=== PATIENT | male | born 1960 | race Caucasian/White ===

== ENCOUNTER 2019-12-25 19:53 | Inpatient (IN) | payer OTHER ==
[2019-12-26] MEDS ORDERED: NALOXONE 0.4 MG/ML 1 ML VIAL IV PRN (00:51)
--- NOTE | 2019-12-26 01:13 | P.HPIM ---
History of Present Illness H&P Date: 12/25/19 Chief Complaint: sob , cough I was wearing full PPE during this encounter including N95 mask, face shield, double gloves, gown, and head cover. . i maintained 6 feet distance with the patient who verbalized understanding about these precautionary measures. except for during my physical exam where i had to be close to the patient. 59-year-old male with diabetes mellitus he doesn't know his baseline A1c, uses insulin Patient is a transfer from [facility] Patient is a very poor historian he only answers with yes and no to direct questions Patient was having symptoms for one week now reporting cough and shortness of breath which has been worsening today he also reports some mild diarrhea otherwise he denies any headache denies any fevers denies any chills denies any chest pain he denies abdominal pain denies any nausea vomiting denies any body aches denies any loss of smell or taste sensation denies any known contact with sick patients are confirmed Covid patient's Patient went to [facility] ER and was found to be hypoxic at 87% Covid testing was done influenza was negative Patient denies any recent traveling or hospitalization. Denies any history of blood clots. Blood work findings from [facility] Chest x-ray bilateral diffuse infiltrates Patient is on 6 L nonrebreather White count 7.9 Lymphocytes 1.25 no lymphopenia Lactic acid is 2 normal D-dimer elevated 1.5 this is a prognostic value with Covid Liver enzymes elevated AST 80 ALT 118 Influenza negative Drugs negative LDH 381 CRP elevated Review of Systems Pertinent positives as noted in HPI. All other systems were reviewed and are negative Past Medical History Past Medical History: Diabetes Mellitus History of Any Multi-Drug Resistant Organisms: None Reported Past Surgical History: No Surgical Hx Reported Past Anesthesia/Blood Transfusion Reactions: No Reported Reaction Past Psychological History: No Psychological Hx Reported Smoking Status: Never smoker Past Alcohol Use History: None Reported Past Drug Use History: None Reported - Past Family History family Family Medical History: No Reported History Medications and Allergies Allergies Allergy/AdvReac Type Severity Reaction Status Date / Time No Known Allergies Allergy Verified 12/25/19 23:51 Physical Exam Vitals: Vital Signs Temp Pulse Resp BP Pulse Ox 12/25/19 23:37 98.5 F 76 17 137/72 94 L 12/25/19 22:00 98.2 F 72 17 127/71 93 L Intake and Output 12/25/19 12/25/19 12/26/19 14:59 22:59 06:59 Other: Weight 118.5 kg Patient is very slow to interact and answer questions and he only answers strict questions with yes and no Constitutional: No acute distress, conversant, pleasant, on nonrebreather Eyes: Anicteric sclerae, moist conjunctiva, Pupils equal round reactive to light ENMT: NC/AT Oropharynx clear, no erythema, or exudates Neck: Supple, FROM, no masses, or JVD No carotid bruits No thyromegaly Lungs: Clear to auscultation Clear to percussion Normal respiratory effort, no accessory muscle use Cardiovascular: Heart regular in rate and rhythm, No murmurs, gallops, or rubs No peripheral edema Abdominal: Soft Nontender, no guarding, rebound or rigidity Abdomen moving with respiration Normoactive bowel sounds No hepatomegaly, No splenomegaly No palpable mass No abdominal wall hernia noted Skin: Normal temperature, tone, texture, turgor No induration No subcutaneous nodules No rash, lesions No ulcers Extremities: No digital cyanosis No clubbing Pedal pulses intact and symmetrical Radial pulses intact and symmetrical No calf tenderness Psychiatric: Alert and oriented to person, place Appropriate affect poor judgement Neuro Muscles Strength 4/5 in all 4 extremities Sensation to light touch grossly present throughout Cranial nerves II-XII grossly intact No focal sensory deficits Lymphatics: no palpable cervical or supraclavicular , or inguinal lymph nodes Thrombosis Risk Factor Assmnt - Choose All That Apply Any of the Below Risk Factors Present?: No Other Risk Factors: No Other congenital or acquired thrombophilia - If yes, enter type in comment: No Thrombosis Risk Factor Assessment Level: Very Low Risk Assessment and Plan Assessment: 59-year-old male with diabetes mellitus on insulin Patient transferred from [facility] Patient suspected to have atypical pneumonia secondary to underlying Covid testing is pending was done on December 24 Anticipated length of stay more than 2 midnights Acute hypoxic respiratory failure Atypical pneumonia possible underlying bacterial versus Covid Suspected Covid Diabetes mellitus Patient is very slow to answer questions seems to be slightly confused will be placed on fall precautions Plan Follow-up cultures Influenza negative D-dimer elevated this is of prognostic value for Covid Check pro calcitonin, CPK, ferritin Start patient on Rocephin and doxycycline to cover for possible bacterial atypical pneumonia Start patient on Plaquenil and zinc for possible Covid ID consultation Check EKG Fall precautions Tylenol for fever Supplemental oxygen keep O sat above 92% Insulin sliding scale Preformed a thorough record review from recent hospitalization paperwork reviewed from [facility] CODE STATUS: Full code DVT prophylaxis: Heparin subcu 3 times a day Discussed with: Patient, ER, RN Anticipated length of stay more than [address]: Home A total of 60 minutes was spent on the care of this complex patient more than 50% of the time was spent in counseling and care coordination.
[2019-12-26] MEDS: DOXYCYCLINE 100 MG CAP PO SCH ×3 (01:47→20:38)
[2019-12-26] MEDS: HYDROXYCHLOROQUINE SULFATE 200 MG TAB PO SCH ×3 (01:47→21:43)
--- NOTE | 2019-12-26 01:48 | XR ---
EXAMINATION TYPE: XR chest 1V DATE OF EXAM: 12/26/2019 COMPARISON: NONE HISTORY: Cough. TECHNIQUE: FINDINGS: There is bilateral moderate pulmonary edema. There is coalescent peripheral infiltrates in the mid lung salas bilaterally. There is no definite heart failure. There is possible small right pl eural effusion. IMPRESSION: Bilateral pulmonary edema could relate to RDS.
[2019-12-26 06:59] LABS: Glucose,Whole Blood 148 mg/dL (75-99)
[2019-12-26] MEDS: INSULIN ASPART (NovoLOG) 100 UNIT/ML VIAL SQ SCH ×4 (07:59→21:44)
[2019-12-26] MEDS: HEPARIN SODIUM,PORCINE 5,000 UNIT/ML 1 ML VIAL SQ SCH ×3 (07:59→23:46)
[2019-12-26] MEDS: ZINC SULFATE 220 MG CAP PO SCH (07:59)
--- NOTE | 2019-12-26 09:03 | CDI ---
Documentation Clarification Form Date: 12/26/2019 08:45:27 AM From: Olga Lidia Logan RN CCDS Admit Date: 12/25/2019 10:10:00 PM Patient Name: Avinash Allison Visit Number: [id number] Discharge Date: ATTENTION: The Clinical Documentation Specialists (CDI) and [facility] Coding Staff appreciate your assistance in clarifying documentation. Please respond to the clarification below the line at the bottom and electronically sign. The CDI & [facility] Coding staff will review the response and follow-up if needed. Please note: Queries are made part of the Legal Health Record. If you have any questions, please contact the author of this message via ITS. Dr. Krystal Gaytan Confusion is documented in the H&P / History/Risk Factors: 59-year-old male transferred to [facility] from [facility] for suspected COVID. Medical history DM, Clinical Indicators: VSS 127/71 72 98.2 17 93% 6L Non-rebreather Labs: 12/24 Wbc 7.9, Lymphocytes 1.25, Lactic acid 2, D-dimer 1.5, AST 80, ALT 118, LDH 381, CRP elevated, Influenza negative. Lab results taken from H&P 12/24 CXR 4/3 Bilateral pulmonary edema could relate to ARDS Treatment: 4/3 Ceftriaxone Ivpb Q 24 Hrs, Vibramycin po Bid, Plaquenl po Bid, Zinc Sulfate. In your professional opinion, please clarify the etiology of the Altered Mental Status, if known. Metabolic Encephalopathy (specify Type and Underlying Medical Illness) Other condition (please specify) Unable to determine (Last Revision: December 2017) patient is new to our system, and we thought this could be some baseline mild congnitive impairment or mentally challenged. I was the admitting physician. please forward your query to the physician who wrote the most current Progress note, he/she probably would be able to help you better . MTDD
[2019-12-26 11:01] LABS: ALT 83 U/L (4-49); AST 50 U/L (17-59); African American GFR (CKD) >90 (>60 ml/min/1.73 sqM); Albumin 2.9 g/dL (3.5-5.0); Alkaline Phosphatase 66 U/L (38-126); Anion Gap 4 mmol/L; Blood Urea Nitrogen 16 mg/dL (9-20); Calcium 8.5 mg/dL (8.4-10.2); Carbon Dioxide 29 mmol/L (22-30); Chloride 106 mmol/L (98-107); Glucose 162 mg/dL (74-99); Non-African American GFR(CKD) >90 (>60 ml/min/1.73 sqM); Potassium 4.9 mmol/L (3.5-5.1); Sodium 139 mmol/L (137-145); Total Bilirubin 0.3 mg/dL (0.2-1.3); Total Protein 5.9 g/dL (6.3-8.2)
[2019-12-26 11:25] LABS: Ferritin 569.5 ng/mL (22.0-322.0)
[2019-12-26 11:31] LABS: Basophils # (A) 0.1 k/uL (0-0.2); Basophils % (A) 1 %; Eosinophils # (A) 0.1 k/uL (0-0.7); Eosinophils % (A) 1 %; HCT 39.1 % (39.0-53.0); HGB 12.9 gm/dL (13.0-17.5); Lymphocytes % (A) 16 %; MCH 30.8 pg (25.0-35.0); MCHC 32.9 g/dL (31.0-37.0); MCV 93.5 fL (80.0-100.0); Mean Platelet Volume 7.4; Monocytes # (A) 0.7 k/uL (0-1.0); Monocytes % (A) 10 %; Neutrophils # (A) 4.5 k/uL (1.3-7.7); Neutrophils % (A) 69 %; Platelet Count 425 k/uL (150-450); RBC 4.18 m/uL (4.30-5.90); RDW 12.9 % (11.5-15.5); WBC 6.5 k/uL (3.8-10.6)
[2019-12-26 11:38] LABS: Glucose,Whole Blood 137 mg/dL (75-99)
[2019-12-26 16:45] LABS: Glucose,Whole Blood 119 mg/dL (75-99)
--- NOTE | 2019-12-26 17:33 | P.PN ---
Subjective Progress Note Date: 12/26/19 (Delayed charting pain at 10:00) Principal diagnosis: shortness of breath Patient is a 59-year-old male to past medical history of diabetes mellitus and cognitive disorder who initially presented to [facility] secondary to cough and shortness of breath. There he underwent an extensive evaluation. He was hypoxic at 87% on room air, influenza negative, Covid 19 pending, chest x-ray with diffuse infiltrates. D-dimer elevated at 1.5, AST 80, ALT 118, LDH 384, CRP elevated. He was transferred here as part of the Covid relief process. He was continued on Rocephin and diaphoresis the cycle and for possible atypical pneumonia. He was started on Plaquenil and zinc for possible Covid. Infectious disease was consulted. By the morning after admission he was requiring increasing levels of oxygen. Patient seen and examined at bedside. He denies any shortness of breath, cough, nausea vomiting, or diarrhea. He complains of body aches and not feeling well. Objective - Vital Signs Vital signs: Vital Signs Temp 98.2 F 12/26/19 15:00 Pulse 80 12/26/19 15:00 Resp 18 12/26/19 15:00 BP 137/74 12/26/19 15:00 Pulse Ox 91 L 12/26/19 16:39 Intake & Output 12/25/19 12/26/19 12/26/19 18:59 06:59 18:59 Intake Total 596 Balance 596 Weight 118.5 kg Intake: Oral 596 Other: Voiding Method Toilet # Voids 2 2 - Exam General: Ill-appearing, distress, appears at stated age Derm: warm, dry Head: atraumatic, normocephalic, symmetric Eyes: EOMI, no lid lag, anicteric sclera Mouth: no lip lesion, mucus membranes moist Cardiovascular: S1S2 reg, no murmur, positive posterior tibial pulse bilateral, Lungs: Breath sounds bilateral, + accessory muscle use Abdominal: soft, nontender to palpation, no guarding, no appreciable organomegaly Ext: no gross muscle atrophy, no edema, no contractures Neuro: CN II-XI grossly intact, no focal neuro deficits Psych: Alert, oriented, appropriate affect - Labs CBC & Chem 7: 12/26/19 10:23 12/26/19 10:23 Labs: Abnormal Lab Results - Last 24 Hours (Table) 12/26/19 12/26/19 12/26/19 Range/Units 01:53 06:57 10:23 RBC 4.18 L (4.30-5.90) m/uL Hgb 12.9 L (13.0-17.5) gm/dL Glucose (74-99) mg/dL POC Glucose (mg/dL) 148 H (75-99) mg/dL Ferritin 569.5 H (22.0-322.0) ng/mL ALT (4-49) U/L Total Protein (6.3-8.2) g/dL Albumin (3.5-5.0) g/dL 12/26/19 12/26/19 12/26/19 Range/Units 10:23 11:35 16:43 RBC (4.30-5.90) m/uL Hgb (13.0-17.5) gm/dL Glucose 162 H (74-99) mg/dL POC Glucose (mg/dL) 137 H 119 H (75-99) mg/dL Ferritin (22.0-322.0) ng/mL ALT 83 H (4-49) U/L Total Protein 5.9 L (6.3-8.2) g/dL Albumin 2.9 L (3.5-5.0) g/dL Assessment and Plan Assessment: Bilateral pneumonia consistent with viral, probable Covid 19 -Plaque [place], zinc -Doxy and Rocephin to treat atypical or bacterial pneumonia -Add albuterol -Elevated ferritin -Follow ferritin, liver enzymes, alkaline phosphatase, CK, LDH, and d-dimer -Pro calcitonin normal -Await Covid 19 testing Acute hypoxic respiratory failure secondary to above -Continue with O2 -Pulmonary hygiene -Awake proning Diabetes mellitus -Sliding-scale insulin -Follow blood sugars -Check an A1c Cognitive delay -Supportive care -Discussed with mother states that he is his own decision-maker DVT prophylaxis: heparin Discussed with: Patient, nursing, mother Anticipated discharge: 5-[address]: home A total of 65 minutes was spent on the care of this complex patient more than 50% of the time was spent in counseling and care coordination.
[2019-12-26] MEDS: ACETAMINOPHEN TAB 325 MG TAB PO PRN (20:38)
[2019-12-26 21:43] LABS: Glucose,Whole Blood 121 mg/dL (75-99)
--- NOTE | 2019-12-26 23:34 | P.CONS ---
History of Present Illness - Reason for Consult Consult date: 12/26/19 possible COVID 19 INFECTION Requesting physician: Krystal Gaytan - Chief Complaint Shortness of breath and cough x few days - History of Present Illness Patient is a 59-year-old male with a past medical he significant for diabetes mellitus presenting to [facility] with increasing shortness of breath and diarrhea along with a headache and body aches patient was noticed to be hypoxic chest x-ray was suggestive of bilateral diffuse infiltrate patient requiring 6 L nonrebreather for oxygenation he was noticed to have elevated d-dimer and lymphopenia with high concern for covenant infection patient has been transferred to [facility] for further management of underlying likely COVID-19 infection On examination vital signs stable except for the patient is requiring 10 L high flow oxygen and is satting at 91% Lung auscultation today shows decrease intensity and no significant wheeze LabsCOVID testing is pending chest x-ray with bilateral diffuse infiltrate question of ARDS A/P ---patient is a 59-year male presented to the hospital increasing shortness of breath cough and this patient did have low-grade fever did have bilateral diffuse infiltrate and high clinical suspicious for acute COVID-19 pneumonia patient is being treated with Plaquenil zinc antibiotic antibiotic therapy which will be continued and monitor his clinical course closely Past Medical History Past Medical History: Diabetes Mellitus History of Any Multi-Drug Resistant Organisms: None Reported Past Surgical History: No Surgical Hx Reported Past Anesthesia/Blood Transfusion Reactions: No Reported Reaction Past Psychological History: No Psychological Hx Reported Smoking Status: Never smoker Past Alcohol Use History: None Reported Past Drug Use History: None Reported - Past Family History family Family Medical History: No Reported History Medications and Allergies Home Medications Medication Instructions Recorded Confirmed Type Atorvastatin [Lipitor] 80 mg PO HS 12/26/19 12/26/19 History Fenofibrate 160 mg PO DAILY 12/26/19 12/26/19 History Insulin NPH Hum/Reg Insulin Hm 56 units SQ AC-BRKFST 12/26/19 12/26/19 History [NovoLIN 70-30 100 UNIT/ML VIAL] Insuln Asp Prt/Insulin Aspart 35 units SQ AC-SUPPER 12/26/19 12/26/19 History [NovoLOG MIX 70-30 VIAL] Levothyroxine Sodium [Synthroid] 50 mcg PO DAILY 12/26/19 12/26/19 History Levothyroxine Sodium [Synthroid] 50 mcg PO DAILY 12/26/19 12/26/19 History Lurasidone [Latuda] 80 mg PO HS 12/26/19 12/26/19 History Venlafaxine HCl [Effexor] 75 mg PO DAILY 12/26/19 12/26/19 History carBAMazepine [TEGretol XR] 100 mg PO DAILY 12/26/19 12/26/19 History carBAMazepine [TEGretol XR] 200 mg PO HS 12/26/19 12/26/19 History metFORMIN HCL 1,000 mg PO BID 12/26/19 12/26/19 History Allergies Allergy/AdvReac Type Severity Reaction Status Date / Time No Known Allergies Allergy Verified 12/25/19 23:51 Physical Exam Vitals: Vital Signs Temp Pulse Resp BP Pulse Ox 12/26/19 11:02 98.7 F 70 18 133/76 93 L 12/26/19 07:00 98.1 F 75 18 131/81 92 L 12/26/19 03:12 98.0 F 74 17 153/75 95 12/25/19 23:37 98.5 F 76 17 137/72 94 L 12/25/19 22:00 98.2 F 72 17 127/71 93 L Intake and Output 12/26/19 12/26/19 12/26/19 06:59 14:59 22:59 Intake Total 596 Balance 596 Intake: Oral 596 Other: Voiding Method Toilet # Voids 2 2 Results CBC & Chem 7: 12/26/19 10:23 12/26/19 10:23 Labs: Abnormal Lab Results - Last 24 Hours (Table) 12/26/19 12/26/19 12/26/19 Range/Units 01:53 06:57 10:23 RBC 4.18 L (4.30-5.90) m/uL Hgb 12.9 L (13.0-17.5) gm/dL Glucose (74-99) mg/dL POC Glucose (mg/dL) 148 H (75-99) mg/dL Ferritin 569.5 H (22.0-322.0) ng/mL ALT (4-49) U/L Total Protein (6.3-8.2) g/dL Albumin (3.5-5.0) g/dL 12/26/19 12/26/19 Range/Units 10:23 11:35 RBC (4.30-5.90) m/uL Hgb (13.0-17.5) gm/dL Glucose 162 H (74-99) mg/dL POC Glucose (mg/dL) 137 H (75-99) mg/dL Ferritin (22.0-322.0) ng/mL ALT 83 H (4-49) U/L Total Protein 5.9 L (6.3-8.2) g/dL Albumin 2.9 L (3.5-5.0) g/dL
[2019-12-27 07:11] LABS: Glucose,Whole Blood 130 mg/dL (75-99)
[2019-12-27] MEDS: INSULIN ASPART (NovoLOG) 100 UNIT/ML VIAL SQ SCH ×4 (07:54→21:42)
[2019-12-27 08:07] LABS: ALT 77 U/L (4-49); AST 48 U/L (17-59); African American GFR (CKD) >90 (>60 ml/min/1.73 sqM); Albumin 3.1 g/dL (3.5-5.0); Alkaline Phosphatase 66 U/L (38-126); Anion Gap 6 mmol/L; Blood Urea Nitrogen 16 mg/dL (9-20); C Reactive Protein 55.9 mg/L (<10.0); Calcium 8.5 mg/dL (8.4-10.2); Carbon Dioxide 23 mmol/L (22-30); Chloride 107 mmol/L (98-107); Creatine Kinase 112 U/L (55-170); Glucose 132 mg/dL (74-99); LDH 883 U/L (313-618); Magnesium 1.7 mg/dL (1.6-2.3); Non-African American GFR(CKD) >90 (>60 ml/min/1.73 sqM); Potassium 4.9 mmol/L (3.5-5.1); Sodium 136 mmol/L (137-145); Total Bilirubin 0.5 mg/dL (0.2-1.3); Total Protein 6.3 g/dL (6.3-8.2)
[2019-12-27] MEDS: HEPARIN SODIUM,PORCINE 5,000 UNIT/ML 1 ML VIAL SQ SCH ×3 (08:09→23:27)
[2019-12-27] MEDS: HYDROXYCHLOROQUINE SULFATE 200 MG TAB PO SCH ×2 (08:09→21:19)
[2019-12-27] MEDS: DOXYCYCLINE 100 MG CAP PO SCH (08:09)
[2019-12-27] MEDS: ZINC SULFATE 220 MG CAP PO SCH (08:09)
[2019-12-27 08:22] LABS: Basophils % (A) 1 %; Eosinophils # (A) 0.1 k/uL (0-0.7); Eosinophils % (A) 2 %; HCT 41.9 % (39.0-53.0); HGB 13.5 gm/dL (13.0-17.5); Lymphocytes # (A) 1.4 k/uL (1.0-4.8); Lymphocytes % (A) 20 %; MCH 30.2 pg (25.0-35.0); MCHC 32.3 g/dL (31.0-37.0); MCV 93.4 fL (80.0-100.0); Mean Platelet Volume 7.2; Monocytes # (A) 0.6 k/uL (0-1.0); Monocytes % (A) 9 %; Neutrophils # (A) 4.5 k/uL (1.3-7.7); Neutrophils % (A) 66 %; Platelet Count 481 k/uL (150-450); RBC 4.48 m/uL (4.30-5.90); RDW 12.9 % (11.5-15.5); WBC 6.9 k/uL (3.8-10.6)
[2019-12-27 11:50] LABS: Glucose,Whole Blood 142 mg/dL (75-99)
[2019-12-27 16:18] LABS: Ferritin 491.2 ng/mL (22.0-322.0)
[2019-12-27 16:33] LABS: Glucose,Whole Blood 129 mg/dL (75-99)
--- NOTE | 2019-12-27 18:38 | P.PN ---
Subjective Progress Note Date: 12/27/19 Principal diagnosis: shortness of breath Patient is a 59-year-old male to past medical history of diabetes mellitus and cognitive disorder who initially presented to [facility] secondary to cough and shortness of breath. There he underwent an extensive evaluation. He was hypoxic at 87% on room air, influenza negative, Covid 19 pending, chest x-ray with diffuse infiltrates. D-dimer elevated at 1.5, AST 80, ALT 118, LDH 384, CRP elevated. He was transferred here as part of the Covid relief process. He was continued on Rocephin and doxy and for possi ble atypical pneumonia. He was started on Plaquenil and zinc for possible Covid. Infectious disease was consulted. By the morning after admission he was requiring increasing levels of oxygen. COVID-19 +. He continued to require high amounts of oxygen but was feeling asymptomatic. Patient seen and examined at bedside. He denies any shortness of breath (though visiably SOB when talking), cough, nausea vomiting, or diarrhea. He states that he is feeling better than yesterday. Objective - Vital Signs Vital signs: Vital Signs Temp 97.8 F 12/27/19 15:00 Pulse 72 12/27/19 15:00 Resp 18 12/27/19 15:00 BP 138/81 12/27/19 15:00 Pulse Ox 95 12/27/19 15:00 Intake & Output 12/26/19 12/27/19 12/27/19 18:59 06:59 18:59 Intake Total 776 50 888 Balance 776 50 888 Intake: Intake, IV Titration 50 Amount cefTRIAXone 1 gm In 50 Sodium Chloride 0.9% 50 ml @ 100 mls/hr IVPB Q24H [facility] Rx#:[id number] Oral 776 888 Other: Voiding Method Toilet Toilet # Voids 2 1 1 - Exam General: Ill-appearing, no distress, appears at stated age Derm: warm, dry Head: atraumatic, normocephalic, symmetric Eyes: EOMI, no lid lag, anicteric sclera Mouth: no lip lesion, mucus membranes moist Cardiovascular: S1S2 reg, no murmur, positive posterior tibial pulse bilateral, Lungs: Course breath sounds bilateral, no accessory muscle use, 3 word conversational dyspnea Abdominal: soft, nontender to palpation, no guarding, no appreciable organomegaly Ext: no gross muscle atrophy, no edema, no contractures Neuro: CN II-XI grossly intact, no focal neuro deficits Psych: Alert, oriented, appropriate affect - Labs CBC & Chem 7: 12/27/19 07:11 12/27/19 07:11 Labs: Abnormal Lab Results - Last 24 Hours (Table) 12/26/19 12/27/19 12/27/19 Range/Units 21:39 07:09 07:11 Plt Count 481 H (150-450) k/uL D-Dimer (<0.60) mg/L FEU Sodium (137-145) mmol/L Glucose (74-99) mg/dL POC Glucose (mg/dL) 121 H 130 H (75-99) mg/dL Ferritin (22.0-322.0) ng/mL ALT (4-49) U/L Lactate Dehydrogenase (313-618) U/L C-Reactive Protein (<10.0) mg/L Albumin (3.5-5.0) g/dL 12/27/19 12/27/19 12/27/19 Range/Units 07:11 07:11 11:49 Plt Count (150-450) k/uL D-Dimer 1.39 H (<0.60) mg/L FEU Sodium 136 L (137-145) mmol/L Glucose 132 H (74-99) mg/dL POC Glucose (mg/dL) 142 H (75-99) mg/dL Ferritin 491.2 H (22.0-322.0) ng/mL ALT 77 H (4-49) U/L Lactate Dehydrogenase 883 H (313-618) U/L C-Reactive Protein 55.9 H (<10.0) mg/L Albumin 3.1 L (3.5-5.0) g/dL 12/27/19 Range/Units 16:32 Plt Count (150-450) k/uL D-Dimer (<0.60) mg/L FEU Sodium (137-145) mmol/L Glucose (74-99) mg/dL POC Glucose (mg/dL) 129 H (75-99) mg/dL Ferritin (22.0-322.0) ng/mL ALT (4-49) U/L Lactate Dehydrogenase (313-618) U/L C-Reactive Protein (<10.0) mg/L Albumin (3.5-5.0) g/dL Microbiology - Last 24 Hours (Table) 12/26/19 01:53 Blood Culture - Preliminary Blood No Growth after 24 hours Assessment and Plan Assessment: Bilateral pneumonia consistent with viral, + Covid 19 -hydroxychloroquine, zinc -Doxy and Rocephin stopped -albuterol -Elevated ferritin -Follow ferritin, liver enzymes, alkaline phosphatase, CK, LDH, and d-dimer -Procalcitonin normal Acute hypoxic respiratory failure secondary to above -Continue with O2 -Pulmonary hygiene -Awake proning Diabetes mellitus -Sliding-scale insulin -Follow blood sugars -A1c pending Cognitive delay -Supportive care -Discussed with mother states that he is his own decision-maker DVT prophylaxis: heparin Discussed with: Patient, nursing, mother Anticipated discharge:3-[address]: home A total of 35 minutes was spent on the care of this complex patient more than 50% of the time was spent in counseling and care coordination.
[2019-12-27 19:41] LABS: Hemoglobin A1C 6.7 % (4.0-6.0)
[2019-12-27 21:24] LABS: Glucose,Whole Blood 117 mg/dL (75-99)
[2019-12-27] MEDS: ACETAMINOPHEN TAB 325 MG TAB PO PRN (21:36)
[2019-12-28] MEDS: ACETAMINOPHEN TAB 325 MG TAB PO PRN ×4 (04:01→20:30)
[2019-12-28 06:59] LABS: Glucose,Whole Blood 142 mg/dL (75-99)
[2019-12-28] MEDS: HYDROXYCHLOROQUINE SULFATE 200 MG TAB PO SCH ×2 (07:36→20:32)
[2019-12-28] MEDS: ZINC SULFATE 220 MG CAP PO SCH (07:36)
[2019-12-28] MEDS: INSULIN ASPART (NovoLOG) 100 UNIT/ML VIAL SQ SCH ×4 (07:36→20:32)
[2019-12-28] MEDS: HEPARIN SODIUM,PORCINE 5,000 UNIT/ML 1 ML VIAL SQ SCH ×3 (07:36→23:10)
[2019-12-28 08:00] LABS: Basophils # (A) 0.1 k/uL (0-0.2); Basophils % (A) 1 %; Eosinophils # (A) 0.1 k/uL (0-0.7); Eosinophils % (A) 2 %; HCT 42.9 % (39.0-53.0); HGB 14.1 gm/dL (13.0-17.5); Lymphocytes # (A) 1.4 k/uL (1.0-4.8); Lymphocytes % (A) 19 %; MCH 30.5 pg (25.0-35.0); MCHC 32.9 g/dL (31.0-37.0); MCV 92.6 fL (80.0-100.0); Mean Platelet Volume 7.3; Monocytes # (A) 0.7 k/uL (0-1.0); Monocytes % (A) 9 %; Neutrophils # (A) 4.9 k/uL (1.3-7.7); Neutrophils % (A) 66 %; Platelet Count 502 k/uL (150-450); RBC 4.63 m/uL (4.30-5.90); RDW 12.9 % (11.5-15.5); WBC 7.4 k/uL (3.8-10.6)
[2019-12-28 08:18] LABS: ALT 74 U/L (4-49); AST 49 U/L (17-59); African American GFR (CKD) >90 (>60 ml/min/1.73 sqM); Albumin 3.3 g/dL (3.5-5.0); Alkaline Phosphatase 83 U/L (38-126); Anion Gap 11 mmol/L; Blood Urea Nitrogen 17 mg/dL (9-20); Calcium 8.8 mg/dL (8.4-10.2); Carbon Dioxide 22 mmol/L (22-30); Chloride 106 mmol/L (98-107); Glucose 138 mg/dL (74-99); Non-African American GFR(CKD) >90 (>60 ml/min/1.73 sqM); Sodium 139 mmol/L (137-145); Total Bilirubin 0.4 mg/dL (0.2-1.3); Total Protein 6.7 g/dL (6.3-8.2)
--- NOTE | 2019-12-28 08:35 | PN ---
PROGRESS NOTE DATE OF SERVICE: 12/27/2019 REASON FOR FOLLOWUP: Acute Covid-19 pneumonia. INTERVAL HISTORY: The patient is currently afebrile. He was breathing slightly comfortably today. Denies having any chest pain or worsening cough. No nausea. No vomiting. No abdominal pain. No diarrhea. PHYSICAL EXAMINATION: Blood pressure 114/70 with a pulse of 74, temperature 98.1. He is 96% on 2 L of oxygen. General description is a middle-aged male lying in bed in no distress. Respiratory system: Unlabored breathing, decreased breath sounds at bases. No wheeze. Heart S1, S2. Regular rate and rhythm. Abdomen soft, no tenderness. LABS: BUN of 16, creatinine 0.82 and LDH of 883. Covide-19 is positive. DIAGNOSTIC IMPRESSION AND PLAN: Patient with acute COVID-19 pneumonia. The patient at this time to continue with Plaquenil. May benefit from low-dose steroids as the patient still requiring high-flow oxygen. Continue with Zinc and monitor clinical course closely. Continue supportive care. MMODL / IJN: [id number] /
--- NOTE | 2019-12-28 09:09 | XR ---
EXAMINATION TYPE: XR chest 1V portable DATE OF EXAM: 12/28/2019 HISTORY: pneumonia. REFERENCE: Previous study dated 12/26/2019. FINDINGS: The heart is enlarged. There are peripheral infiltrates in both lungs. No definite pleural fluid seen IMPRESSION: 1. SLIGHT IMPROVEMENT IN THE APPEARANCE THE CHEST. 2. IN THE PROPER CLINICAL SITUATION CONSIDER COVGENNY 1919.
[2019-12-28 11:13] LABS: Glucose,Whole Blood 142 mg/dL (75-99)
[2019-12-28] MEDS: methylPREDNISolone SOD SUCCI 125 MG/2 ML VIAL IV SCH ×2 (15:27→20:30)
--- NOTE | 2019-12-28 16:10 | P.PN ---
Subjective Progress Note Date: 12/28/19 Principal diagnosis: shortness of breath Patient is a 59-year-old male to past medical history of diabetes mellitus and cognitive disorder who initially presented to [facility] secondary to cough and shortness of breath. There he underwent an extensive evaluation. He was hypoxic at 87% on room air, influenza negative, Covid 19 pending, chest x-ray with diffuse infiltrates. D-dimer elevated at 1.5, AST 80, ALT 118, LDH 384, CRP elevated. He was transferred here as part of the Covid relief process. He was continued on Rocephin and doxy and for possi ble atypical pneumonia. He was started on Plaquenil and zinc for possible Covid. Infectious disease was consulted. By the morning after admission he was requiring increasing levels of oxygen. COVID-19 +. He continued to require high amounts of oxygen but was feeling asymptomatic. His O2 requirements stabilized. Patient seen and examined at bedside. States that shortness of breath is better, coughing is better, no nausea, no vomiting, no diarrhea. No other complaints currently. Objective - Vital Signs Vital signs: Vital Signs Temp 98.7 F 12/28/19 14:58 Pulse 81 12/28/19 14:58 Resp 20 12/28/19 14:58 BP 109/63 12/28/19 14:58 Pulse Ox 91 L 12/28/19 14:58 Intake & Output 12/27/19 12/28/19 12/28/19 18:59 06:59 18:59 Intake Total 888 200 Balance 888 200 Intake: Oral 888 Other 200 Other: Voiding Method Toilet Toilet # Voids 1 3 2 - Exam General: Ill-appearing, no distress, appears at stated age Derm: warm, dry Head: atraumatic, normocephalic, symmetric Eyes: EOMI, no lid lag, anicteric sclera Mouth: no lip lesion, mucus membranes moist Cardiovascular: S1S2 reg, no murmur, positive posterior tibial pulse bilateral, Lungs: Course breath sounds bilateral, no accessory muscle use, no conversational dyspnea Abdominal: soft, nontender to palpation, no guarding, no appreciable organomegaly Ext: no gross muscle atrophy, no edema, no contractures Neuro: CN II-XI grossly intact, no focal neuro deficits Psych: Alert, oriented, appropriate affect - Labs CBC & Chem 7: 12/28/19 07:01 12/28/19 07:01 Labs: Abnormal Lab Results - Last 24 Hours (Table) 12/27/19 12/27/19 12/27/19 Range/Units 07:11 07:11 16:32 Plt Count (150-450) k/uL Glucose (74-99) mg/dL POC Glucose (mg/dL) 129 H (75-99) mg/dL Hemoglobin A1c 6.7 H (4.0-6.0) % Ferritin 491.2 H (22.0-322.0) ng/mL ALT (4-49) U/L Albumin (3.5-5.0) g/dL 12/27/19 12/28/19 12/28/19 Range/Units 21:22 06:57 07:01 Plt Count 502 H (150-450) k/uL Glucose (74-99) mg/dL POC Glucose (mg/dL) 117 H 142 H (75-99) mg/dL Hemoglobin A1c (4.0-6.0) % Ferritin (22.0-322.0) ng/mL ALT (4-49) U/L Albumin (3.5-5.0) g/dL 12/28/19 12/28/19 Range/Units 07:01 11:11 Plt Count (150-450) k/uL Glucose 138 H (74-99) mg/dL POC Glucose (mg/dL) 142 H (75-99) mg/dL Hemoglobin A1c (4.0-6.0) % Ferritin (22.0-322.0) ng/mL ALT 74 H (4-49) U/L Albumin 3.3 L (3.5-5.0) g/dL Microbiology - Last 24 Hours (Table) 12/26/19 01:53 Blood Culture - Preliminary Blood No Growth after 48 hours Assessment and Plan Assessment: Bilateral pneumonia consistent with viral, + Covid 19 -hydroxychloroquine, zinc -albuterol -Elevated ferritin -Follow ferritin, liver enzymes, alkaline phosphatase, CK, LDH, and d-dimer -Procalcitonin normal -steroids due to high FiO2 requirement Acute hypoxic respiratory failure secondary to above -Continue with O2 -Pulmonary hygiene -Awake proning as patient is able Diabetes mellitus -Sliding-scale insulin, 70/30 and metformin on hold and BS controlled may need to restart 70/30 in am with steroids starting -Follow blood sugars -A1c 6.7 Cognitive delay -Supportive care -Discussed with mother states that he is his own decision-maker The patient cannot be safely quarantined at home due to: - Hypoxic Respiratory failure as describe by requiring 10L NC whihc cant be done at home. DVT prophylaxis: heparin Discussed with: Patient, nursing, mother Anticipated discharge: 2-[address]: home A total of 35 minutes was spent on the care of this complex patient more than 50% of the time was spent in counseling and care coordination.
[2019-12-28 16:45] LABS: Glucose,Whole Blood 142 mg/dL (75-99)
[2019-12-28 20:02] LABS: Glucose,Whole Blood 300 mg/dL (75-99)
[2019-12-28] MEDS: carBAMazepine 100 MG TAB.ER.12H PO SCH (20:31)
[2019-12-28] MEDS: LURASIDONE 80 MG TAB PO SCH (20:32)
[2019-12-28] MEDS: ATORVASTATIN 80 MG TAB PO SCH (20:32)
[2019-12-29] MEDS: ACETAMINOPHEN TAB 325 MG TAB PO PRN ×3 (01:18→10:27)
[2019-12-29] MEDS: LEVOTHYROXINE 50 MCG TAB PO SCH (05:32)
[2019-12-29 06:52] LABS: Basophils % (A) 0 %; Eosinophils % (A) 0 %; HCT 44.3 % (39.0-53.0); HGB 14.7 gm/dL (13.0-17.5); Lymphocytes # (A) 1.1 k/uL (1.0-4.8); Lymphocytes % (A) 10 %; MCHC 33.1 g/dL (31.0-37.0); MCV 93.6 fL (80.0-100.0); Mean Platelet Volume 7.6; Monocytes # (A) 0.6 k/uL (0-1.0); Monocytes % (A) 6 %; Neutrophils # (A) 9.1 k/uL (1.3-7.7); Neutrophils % (A) 82 %; Platelet Count 588 k/uL (150-450); RBC 4.73 m/uL (4.30-5.90); RDW 12.7 % (11.5-15.5); WBC 11.1 k/uL (3.8-10.6)
[2019-12-29 07:07] LABS: C Reactive Protein 48.8 mg/L (<10.0)
[2019-12-29 07:26] LABS: ALT 78 U/L (4-49); AST 43 U/L (17-59); African American GFR (CKD) >90 (>60 ml/min/1.73 sqM); Albumin 3.4 g/dL (3.5-5.0); Alkaline Phosphatase 107 U/L (38-126); Anion Gap 10 mmol/L; Blood Urea Nitrogen 23 mg/dL (9-20); Calcium 9.1 mg/dL (8.4-10.2); Carbon Dioxide 23 mmol/L (22-30); Chloride 104 mmol/L (98-107); Creatine Kinase 179 U/L (55-170); Glucose 244 mg/dL (74-99); LDH 733 U/L (313-618); Non-African American GFR(CKD) >90 (>60 ml/min/1.73 sqM); Potassium 5.6 mmol/L (3.5-5.1); Sodium 137 mmol/L (137-145); Total Bilirubin 0.4 mg/dL (0.2-1.3)
[2019-12-29 07:37] LABS: Glucose,Whole Blood 232 mg/dL (75-99)
--- NOTE | 2019-12-29 07:38 | PN ---
PROGRESS NOTE DATE OF SERVICE: 12/28/2019 REASON FOR FOLLOW UP: Acute COVID-19 pneumonia. INTERVAL HISTORY: The patient did spike a low-grade fever of 100.3 this morning. The patient IS afebrile since then. The patient is requiring high-flow oxygen. Currently on 10 L. The patient denies having any chest pain. Minimal cough. No nausea, no vomiting. No abdominal pain, no diarrhea. PHYSICAL EXAMINATION: Blood pressure 135/73 with a pulse of 75, temperature 98.3, he is 97% on 10 L high-flow oxygen. General description is a middle-aged male, lying in bed in no distress. RESPIRATORY SYSTEM: Unlabored breathing, decreased intensity of breath sounds. No wheeze. HEART: S1, S2. Regular rate and rhythm. ABDOMEN: Soft, no tenderness. LABS: Hemoglobin is 14.1, white count of 7.4, BUN of 17, creatinine 0.82. DIAGNOSTIC IMPRESSION AND PLAN: Patient with acute COVID-19 pneumonia. Patient did have slight improvement in the chest x-ray. RN has been advised to switch the nasal cannula oxygen to simple mask as the patient as the patient does more from mouth breathing: In view of a requiring high- flow oxygen, steroids have been added and will monitor clinical course closely. MMODL / IJN: [id number] /
[2019-12-29] MEDS: methylPREDNISolone SOD SUCCI 125 MG/2 ML VIAL IV SCH ×3 (08:11→22:16)
[2019-12-29] MEDS: HYDROXYCHLOROQUINE SULFATE 200 MG TAB PO SCH ×2 (08:12→22:31)
[2019-12-29] MEDS: FENOFIBRATE 160 MG TAB PO SCH (08:12)
[2019-12-29] MEDS: HEPARIN SODIUM,PORCINE 5,000 UNIT/ML 1 ML VIAL SQ SCH ×4 (08:12→22:17)
[2019-12-29] MEDS: ZINC SULFATE 220 MG CAP PO SCH (08:12)
[2019-12-29] MEDS: INSULIN ASPART (NovoLOG) 100 UNIT/ML VIAL SQ SCH ×4 (08:13→22:10)
[2019-12-29] MEDS: carBAMazepine 100 MG TAB.ER.12H PO SCH ×3 (08:13→22:17)
[2019-12-29 11:28] LABS: Glucose,Whole Blood 244 mg/dL (75-99)
[2019-12-29] MEDS ORDERED: SODIUM POLYSTYRENE SULFONATE 15 GM/60 ML BOTTLE PO STA (13:54)
--- NOTE | 2019-12-29 14:01 | P.PN ---
<Lucia Davies - Last Filed: 12/29/19 14:34> Subjective Progress Note Date: 12/29/19 CHIEF COMPLAINT: Covid 19 HISTORY OF PRESENT ILLNESS: Patient is a 59-year-old male to past medical history of diabetes mellitus and cognitive disorder who initially presented to [facility] secondary to cough and shortness of breath. There he underwent an extensive evaluation. He was hypoxic at 87% on room air, influenza negative, Covid 19 pending, chest x-ray with diffuse infiltrates. D-dimer elevated at 1.5, AST 80, ALT 118, LDH 384, CRP elevated. He was transferred here as part of the Covid relief process. He was continued on Rocephin and doxy and for possible atypical pneumonia. He was started on Plaquenil and zinc for possible Covid. Infectious disease was consulted. By the morning after admission he was requiring increasing levels of oxygen. COVID-19 +. He continued to require high amounts of oxygen but was feeling asymptomatic. His O2 requirements stabilized. 12/29/2019: Patient examined at the bedside. He denies any shortness of breath or difficulty in breathing. He denies cough. He is on 10L nasal cannula. Oxygen saturation 97%. Patient reports generalized body aches. PHYSICAL EXAM: VITAL SIGNS: Reviewed GENERAL: Well-developed in no acute distress. HEENT: No sclera icterus. Extraocular movements grossly intact. Moist buccal mucosa. Head is atraumatic, normocephalic. Hears conversational speech. No nasal drainage. NECK: Supple without lymphadenopathy. CHEST: Lung sounds coarse. Equal bilateral excursions. No accessory muscle use. CARDIOVASCULAR: Regular rate with regular rhythm. Palpable pulses. ABDOMEN: Soft. Nondistended. Nontender. MUSCULOSKELETAL: No clubbing or cyanosis. NEUROLOGIC: No focal or lateralizing signs. Cranial nerves II through XII grossly intact. PSYCH: Appropriate affect. Alert and oriented to person, place and time. SKIN: Well perfused. Good skin turgor. ASSESSMENT AND PLAN: 1. Bilateral pneumonia secondary to acute Covid 19 infection, acute hypoxic respiratory failure -Supportive care -Encouraged awake proning -Continue Plaquenil -Continue to monitor labs -Limit IV fluids -Continue contact and droplet isolation precautions -Continue zinc -Continue IV steroids -Wean oxygen as tolerated to maintain O2 sats greater than 92% -Continue Tylenol for generalized malaise and body aches 2. Diabetes mellitus with steroid-induced hyperglycemia -Continue sliding scale insulin -Resume home dose of 70/30 secondary to hyperglycemia -Metformin remains on hold. Will reassess after initiating patient's home dose of 70/30 -Continue to monitor blood sugars -Hemoglobin A1c 6.7 3. Thrombocytosis, likely reactive -Continue to monitor CBC 4. Hyperkalemia -Continue to monitor kidney function -Repeat potassium 5. Cognitive delay -Supportive care DVT prophylaxis: Heparin subcu Discussed with: Nursing, patient Anticipated discharge: Possibly within the next 48 hours pending improvement of high O2 requirements Anticipated discharge place: Home Nurse practitioner note has been reviewed by physician. Signing provider agrees with the documented findings, assessment, and plan of care. Objective - Vital Signs Vital signs: Vital Signs Temp 98.4 F 12/29/19 11:28 Pulse 84 12/29/19 13:06 Resp 18 12/29/19 13:06 BP 120/72 12/29/19 11:28 Pulse Ox 97 12/29/19 13:06 Intake & Output 12/28/19 12/29/19 12/29/19 18:59 06:59 18:59 Intake Total 2280 Balance 2280 Intake: Oral 2280 Other: Voiding Method Toilet # Voids 2 3 - Labs CBC & Chem 7: 12/29/19 05:33 12/29/19 05:33 Labs: Abnormal Lab Results - Last 24 Hours (Table) 12/28/19 12/28/19 12/29/19 Range/Units 16:43 20:00 05:33 WBC 11.1 H (3.8-10.6) k/uL Plt Count 588 H (150-450) k/uL Neutrophils # 9.1 H (1.3-7.7) k/uL D-Dimer (<0.60) mg/L FEU Potassium (3.5-5.1) mmol/L BUN (9-20) mg/dL Glucose (74-99) mg/dL POC Glucose (mg/dL) 142 H 300 H (75-99) mg/dL ALT (4-49) U/L Lactate Dehydrogenase (313-618) U/L Creatine Kinase (55-170) U/L C-Reactive Protein (<10.0) mg/L Albumin (3.5-5.0) g/dL 12/29/19 12/29/19 12/29/19 Range/Units 05:33 05:33 07:31 WBC (3.8-10.6) k/uL Plt Count (150-450) k/uL Neutrophils # (1.3-7.7) k/uL D-Dimer 1.31 H (<0.60) mg/L FEU Potassium 5.6 H (3.5-5.1) mmol/L BUN 23 H (9-20) mg/dL Glucose 244 H (74-99) mg/dL POC Glucose (mg/dL) 232 H (75-99) mg/dL ALT 78 H (4-49) U/L Lactate Dehydrogenase 733 H (313-618) U/L Creatine Kinase 179 H (55-170) U/L C-Reactive Protein 48.8 H (<10.0) mg/L Albumin 3.4 L (3.5-5.0) g/dL 12/29/19 Range/Units 11:26 WBC (3.8-10.6) k/uL Plt Count (150-450) k/uL Neutrophils # (1.3-7.7) k/uL D-Dimer (<0.60) mg/L FEU Potassium (3.5-5.1) mmol/L BUN (9-20) mg/dL Glucose (74-99) mg/dL POC Glucose (mg/dL) 244 H (75-99) mg/dL ALT (4-49) U/L Lactate Dehydrogenase (313-618) U/L Creatine Kinase (55-170) U/L C-Reactive Protein (<10.0) mg/L Albumin (3.5-5.0) g/dL Microbiology - Last 24 Hours (Table) 12/26/19 01:53 Blood Culture - Preliminary Blood No Growth after 72 hours <Tyler Sparks - Last Filed: 12/29/19 18:00> Objective - Vital Signs Vital signs: Vital Signs Temp 97.8 F 12/29/19 15:00 Pulse 87 12/29/19 17:21 Resp 20 12/29/19 17:21 BP 105/67 12/29/19 15:00 Pulse Ox 91 L 12/29/19 17:21 Intake & Output 12/28/19 12/29/19 12/29/19 18:59 06:59 18:59 Intake Total 2280 Balance 2280 Intake: Oral 2280 Other: Voiding Method Toilet # Voids 2 3 3 - Labs CBC & Chem 7: 12/29/19 05:33 12/29/19 14:33 Labs: Abnormal Lab Results - Last 24 Hours (Table) 12/28/19 12/29/19 12/29/19 Range/Units 20:00 05:33 05:33 WBC 11.1 H (3.8-10.6) k/uL Plt Count 588 H (150-450) k/uL Neutrophils # 9.1 H (1.3-7.7) k/uL D-Dimer 1.31 H (<0.60) mg/L FEU Potassium (3.5-5.1) mmol/L BUN (9-20) mg/dL Glucose (74-99) mg/dL POC Glucose (mg/dL) 300 H (75-99) mg/dL Ferritin (22.0-322.0) ng/mL ALT (4-49) U/L Lactate Dehydrogenase (313-618) U/L Creatine Kinase (55-170) U/L C-Reactive Protein (<10.0) mg/L Albumin (3.5-5.0) g/dL 12/29/19 12/29/19 12/29/19 Range/Units 05:33 07:31 11:26 WBC (3.8-10.6) k/uL Plt Count (150-450) k/uL Neutrophils # (1.3-7.7) k/uL D-Dimer (<0.60) mg/L FEU Potassium 5.6 H (3.5-5.1) mmol/L BUN 23 H (9-20) mg/dL Glucose 244 H (74-99) mg/dL POC Glucose (mg/dL) 232 H 244 H (75-99) mg/dL Ferritin 451.4 H (22.0-322.0) ng/mL ALT 78 H (4-49) U/L Lactate Dehydrogenase 733 H (313-618) U/L Creatine Kinase 179 H (55-170) U/L C-Reactive Protein 48.8 H (<10.0) mg/L Albumin 3.4 L (3.5-5.0) g/dL 12/29/19 12/29/19 Range/Units 14:33 16:34 WBC (3.8-10.6) k/uL Plt Count (150-450) k/uL Neutrophils # (1.3-7.7) k/uL D-Dimer (<0.60) mg/L FEU Potassium 5.7 H (3.5-5.1) mmol/L BUN (9-20) mg/dL Glucose (74-99) mg/dL POC Glucose (mg/dL) 234 H (75-99) mg/dL Ferritin (22.0-322.0) ng/mL ALT (4-49) U/L Lactate Dehydrogenase (313-618) U/L Creatine Kinase (55-170) U/L C-Reactive Protein (<10.0) mg/L Albumin (3.5-5.0) g/dL Microbiology - Last 24 Hours (Table) 12/26/19 01:53 Blood Culture - Preliminary Blood No Growth after 72 hours Assessment and Plan Assessment: I saw and evaluated the patient and discussed the care with [Florinda Davies ], MELVIN on [12/29/2019 ]. I agree with the subjective, assessment and plan as docum ented in the note above. Patient continues to require large amounts of oxygen to maintain O2 saturation greater than 92%, will continue present management. Potassium was noted to be 5.6 and 5.7 on repeat. 10 units of IV insulin was ordered along with D50. Will repeat potassium at 10 PM. Physical exam: General: [Non toxic],[Ill appearing], [No distress]. Skin: [warm], [dry] Lungs: [chest rise symmetrical], [no accessory muscle use], [no conversational dyspnea] Cardiovascular: [ + dorsal pedis pulse bilateral], [capillary refill<2 seconds], [no lower extremity edema]
[2019-12-29 15:43] LABS: Ferritin 451.4 ng/mL (22.0-322.0)
[2019-12-29 16:35] LABS: Glucose,Whole Blood 234 mg/dL (75-99)
[2019-12-29] MEDS: INSULN ASP PRT/INSULIN ASPART 100 UNIT/ML 10 ML VIAL SQ SCH (17:14)
[2019-12-29] MEDS ORDERED: DEXTROSE 50% SYRINGE 50 ML IVP STA (17:59)
[2019-12-29] MEDS ORDERED: INSULIN REGULAR 100 UNIT/ML VIAL IV ONE (17:59)
[2019-12-29 22:07] LABS: Glucose,Whole Blood 152 mg/dL (75-99)
[2019-12-29] MEDS: LURASIDONE 80 MG TAB PO SCH ×2 (22:11→22:17)
[2019-12-29] MEDS: ATORVASTATIN 80 MG TAB PO SCH ×2 (22:12→22:17)
--- NOTE | 2019-12-30 05:13 | PN ---
PROGRESS NOTE DATE OF SERVICE: 12/29/2019 REASON FOR FOLLOWUP: Acute COVID-19 infection. INTERVAL HISTORY: The patient is currently afebrile. The patient's FiO2 is currently down to 5. The patient denies having any chest pain, No shortness of breath or cough. No vomiting or any diarrhea. Has been complaining of some headache. PHYSICAL EXAMINATION: On examination blood pressure 125/61 with a pulse of 88, temperature of 98.2. He is 96% on 5 L nasal cannula. General description is a middle-aged male lying in bed in no distress. RESPIRATORY SYSTEM: Unlabored breathing, decreased breath sounds in the bases. No wheeze. HEART: S1, S2. Regular rate and rhythm. ABDOMEN: Soft, no tenderness. LABS: No new labs have been obtained today. DIAGNOSTIC IMPRESSION AND PLAN: Patient with COVID-19 infection. The patient to continue with Plaquenil, Zinc and steroids. Monitor clinical course closely. Continue with supportive care. MMODL / IJN: [id number] /
[2019-12-30] MEDS: LEVOTHYROXINE 50 MCG TAB PO SCH (05:43)
[2019-12-30 06:58] LABS: Glucose,Whole Blood 219 mg/dL (75-99)
[2019-12-30 07:04] LABS: Basophils % (A) 0 %; Eosinophils % (A) 0 %; HCT 41.1 % (39.0-53.0); HGB 13.7 gm/dL (13.0-17.5); Lymphocytes # (A) 1.4 k/uL (1.0-4.8); Lymphocytes % (A) 14 %; MCH 30.7 pg (25.0-35.0); MCHC 33.2 g/dL (31.0-37.0); MCV 92.4 fL (80.0-100.0); Mean Platelet Volume 7.5; Monocytes # (A) 0.6 k/uL (0-1.0); Monocytes % (A) 6 %; Neutrophils # (A) 7.6 k/uL (1.3-7.7); Neutrophils % (A) 77 %; Platelet Count 573 k/uL (150-450); RBC 4.45 m/uL (4.30-5.90); RDW 12.7 % (11.5-15.5); WBC 9.9 k/uL (3.8-10.6)
[2019-12-30] MEDS: methylPREDNISolone SOD SUCCI 125 MG/2 ML VIAL IV SCH ×4 (07:23→21:02)
[2019-12-30] MEDS: HEPARIN SODIUM,PORCINE 5,000 UNIT/ML 1 ML VIAL SQ SCH ×4 (07:24→21:05)
[2019-12-30] MEDS: HYDROXYCHLOROQUINE SULFATE 200 MG TAB PO SCH (07:25)
[2019-12-30] MEDS: FENOFIBRATE 160 MG TAB PO SCH (07:25)
[2019-12-30] MEDS: ZINC SULFATE 220 MG CAP PO SCH (07:25)
[2019-12-30] MEDS: carBAMazepine 100 MG TAB.ER.12H PO SCH ×2 (07:26→21:04)
[2019-12-30] MEDS: INSULN ASP PRT/INSULIN ASPART 100 UNIT/ML 10 ML VIAL SQ SCH ×2 (07:26→17:07)
[2019-12-30] MEDS: INSULIN ASPART (NovoLOG) 100 UNIT/ML VIAL SQ SCH ×4 (07:26→21:00)
[2019-12-30 07:29] LABS: ALT 86 U/L (4-49); AST 54 U/L (17-59); African American GFR (CKD) >90 (>60 ml/min/1.73 sqM); Alkaline Phosphatase 83 U/L (38-126); Anion Gap 8 mmol/L; Blood Urea Nitrogen 22 mg/dL (9-20); Calcium 8.5 mg/dL (8.4-10.2); Carbon Dioxide 21 mmol/L (22-30); Chloride 107 mmol/L (98-107); Glucose 238 mg/dL (74-99); Non-African American GFR(CKD) >90 (>60 ml/min/1.73 sqM); Potassium 5.6 mmol/L (3.5-5.1); Sodium 136 mmol/L (137-145); Total Bilirubin 0.2 mg/dL (0.2-1.3); Total Protein 6.2 g/dL (6.3-8.2)
[2019-12-30] MEDS ORDERED: INSULIN REGULAR 100 UNIT/ML VIAL IV ONE (09:54)
[2019-12-30] MEDS ORDERED: DEXTROSE 50% SYRINGE 50 ML IVP STA (09:54)
--- NOTE | 2019-12-30 11:10 | P.PN ---
<Lucia Davies Catherine - Last Filed: 12/30/19 11:07> Subjective Progress Note Date: 12/30/19 CHIEF COMPLAINT: Covid 19 HISTORY OF PRESENT ILLNESS: Patient is a 59-year-old male to past medical history of diabetes mellitus and cognitive disorder who initially presented to [facility] secondary to cough and shortness of breath. There he underwent an extensive evaluation. He was hypoxic at 87% on room air, influenza negative, Covid 19 pending, chest x-ray with diffuse infiltrates. D-dimer elevated at 1.5, AST 80, ALT 118, LDH 384, CRP elevated. He was transferred here as part of the Covid relief process. He was continued on Rocephin and doxy and for possible atypical pneumonia. He was started on Plaquenil and zinc for possible Covid. Infectious disease was consulted. By the morning after admission he was requiring increasing levels of oxygen. COVID-19 +. He continued to require high amounts of oxygen but was feeling asymptomatic. His O2 requirements stabilized. 12/29/2019: Patient examined at the bedside. He denies any shortness of breath or difficulty in breathing. He denies cough. He is on 10L nasal cannula. Oxygen saturation 97%. Patient reports generalized body aches. 12/30/2019: Patient examined at the bedside. He reports improvement in his overall respiratory status. He is on 5 L nasal cannula today. He reports generalized body aches. Nursing reports he has been up walking to the bathroom without respiratory distress. Patient has finished his course of Plaquenil. Potassium was elevated yesterday and patient received IV insulin and dextrose. Repeat potassium today remains slightly elevated at 5.4. PHYSICAL EXAM: VITAL SIGNS: Reviewed GENERAL: Well-developed in no acute distress. HEENT: No sclera icterus. Extraocular movements grossly intact. Moist buccal mucosa. Head is atraumatic, normocephalic. Hears conversational speech. No nasal drainage. NECK: Supple without lymphadenopathy. CHEST: Lung sounds coarse. Equal bilateral excursions. No accessory muscle use. CARDIOVASCULAR: Regular rate with regular rhythm. Palpable pulses. ABDOMEN: Soft. Nondistended. Nontender. MUSCULOSKELETAL: No clubbing or cyanosis. NEUROLOGIC: No focal or lateralizing signs. Cranial nerves II through XII grossly intact. PSYCH: Appropriate affect. Alert and oriented to person, place and time. SKIN: Well perfused. Good skin turgor. ASSESSMENT AND PLAN: 1. Bilateral pneumonia secondary to acute Covid 19 infection, acute hypoxic respiratory failure -Supportive care -Encouraged awake proning -Patient completed course of Plaquenil -Continue to monitor labs -Limit IV fluids -Continue contact and droplet isolation precautions -Continue zinc -Continue IV steroids -Wean oxygen as tolerated to maintain O2 sats greater than 92% -Continue Tylenol for generalized malaise and body aches 2. Diabetes mellitus with steroid-induced hyperglycemia -Continue sliding scale insulin -Continue home dose of 70/30 secondary to hyperglycemia -Will also resume metformin today due to continued hyperglycemia -Continue to monitor blood sugars -Hemoglobin A1c 6.7 3. Thrombocytosis, likely reactive -Continue to monitor CBC 4. Hyperkalemia -Continue to monitor kidney function -10 units IV insulin and dextrose -Repeat potassium in AM 5. Cognitive delay -Supportive care DVT prophylaxis: Heparin subcu Discussed with: Nursing, patient Anticipated discharge: Possibly within the next 48 hours pending improvement of O2 requirements Anticipated discharge place: Home Nurse practitioner note has been reviewed by physician. Signing provider agrees with the documented findings, assessment, and plan of care. Objective - Vital Signs Vital signs: Vital Signs Temp 97.8 F 12/30/19 07:00 Pulse 77 12/30/19 09:42 Resp 18 12/30/19 09:42 BP 108/65 12/30/19 07:00 Pulse Ox 95 12/30/19 09:42 Intake & Output 12/29/19 12/30/19 12/30/19 18:59 06:59 18:59 Output Total 750 Balance -750 Output: Urine 750 Other: Voiding Method Toilet Urinal # Voids 3 - Labs CBC & Chem 7: 12/30/19 06:32 12/30/19 08:31 Labs: Abnormal Lab Results - Last 24 Hours (Table) 12/29/19 12/29/19 12/29/19 Range/Units 05:33 11:26 14:33 Plt Count (150-450) k/uL Sodium (137-145) mmol/L Potassium 5.7 H (3.5-5.1) mmol/L Carbon Dioxide (22-30) mmol/L BUN (9-20) mg/dL Glucose (74-99) mg/dL POC Glucose (mg/dL) 244 H (75-99) mg/dL Ferritin 451.4 H (22.0-322.0) ng/mL ALT (4-49) U/L Total Protein (6.3-8.2) g/dL Albumin (3.5-5.0) g/dL 12/29/19 12/29/19 12/30/19 Range/Units 16:34 22:04 06:32 Plt Count 573 H (150-450) k/uL Sodium (137-145) mmol/L Potassium (3.5-5.1) mmol/L Carbon Dioxide (22-30) mmol/L BUN (9-20) mg/dL Glucose (74-99) mg/dL POC Glucose (mg/dL) 234 H 152 H (75-99) mg/dL Ferritin (22.0-322.0) ng/mL ALT (4-49) U/L Total Protein (6.3-8.2) g/dL Albumin (3.5-5.0) g/dL 12/30/19 12/30/19 12/30/19 Range/Units 06:32 06:53 08:31 Plt Count (150-450) k/uL Sodium 136 L (137-145) mmol/L Potassium 5.6 H 5.4 H (3.5-5.1) mmol/L Carbon Dioxide 21 L (22-30) mmol/L BUN 22 H (9-20) mg/dL Glucose 238 H (74-99) mg/dL POC Glucose (mg/dL) 219 H (75-99) mg/dL Ferritin (22.0-322.0) ng/mL ALT 86 H (4-49) U/L Total Protein 6.2 L (6.3-8.2) g/dL Albumin 3.0 L (3.5-5.0) g/dL Microbiology - Last 24 Hours (Table) 12/26/19 01:53 Blood Culture - Preliminary Blood No Growth after 96 hours <Tyler Sparks - Last Filed: 12/30/19 17:03> Objective - Vital Signs Vital signs: Vital Signs Temp 98.2 F 12/30/19 15:00 Pulse 81 12/30/19 15:00 Resp 18 12/30/19 15:00 BP 102/64 12/30/19 15:00 Pulse Ox 95 12/30/19 15:00 Intake & Output 12/29/19 12/30/19 12/30/19 18:59 06:59 18:59 Output Total 750 850 Balance -750 -850 Output: Urine 750 850 Other: Voiding Method Toilet Urinal # Voids 3 - Labs CBC & Chem 7: 12/30/19 06:32 12/30/19 08:31 Labs: Abnormal Lab Results - Last 24 Hours (Table) 12/29/19 12/30/19 12/30/19 Range/Units 22:04 06:32 06:32 Plt Count 573 H (150-450) k/uL Sodium 136 L (137-145) mmol/L Potassium 5.6 H (3.5-5.1) mmol/L Carbon Dioxide 21 L (22-30) mmol/L BUN 22 H (9-20) mg/dL Glucose 238 H (74-99) mg/dL POC Glucose (mg/dL) 152 H (75-99) mg/dL ALT 86 H (4-49) U/L Total Protein 6.2 L (6.3-8.2) g/dL Albumin 3.0 L (3.5-5.0) g/dL 12/30/19 12/30/19 12/30/19 Range/Units 06:53 08:31 11:40 Plt Count (150-450) k/uL Sodium (137-145) mmol/L Potassium 5.4 H (3.5-5.1) mmol/L Carbon Dioxide (22-30) mmol/L BUN (9-20) mg/dL Glucose (74-99) mg/dL POC Glucose (mg/dL) 219 H 172 H (75-99) mg/dL ALT (4-49) U/L Total Protein (6.3-8.2) g/dL Albumin (3.5-5.0) g/dL 12/30/19 Range/Units 16:57 Plt Count (150-450) k/uL Sodium (137-145) mmol/L Potassium (3.5-5.1) mmol/L Carbon Dioxide (22-30) mmol/L BUN (9-20) mg/dL Glucose (74-99) mg/dL POC Glucose (mg/dL) 241 H (75-99) mg/dL ALT (4-49) U/L Total Protein (6.3-8.2) g/dL Albumin (3.5-5.0) g/dL Microbiology - Last 24 Hours (Table) 12/26/19 01:53 Blood Culture - Preliminary Blood No Growth after 96 hours Assessment and Plan Assessment: I saw and evaluated the patient and discussed the care with [Florinda Davies ], MELVIN on [12/30/2019 ]. I agree with the subjective, assessment and plan as documented in the note above. His oxygen requirements have decreased. Potassium was noted to be 5.6 today as well. 10 units of IV insulin was ordered along with D50. Patient is on telemetry monitoring. He is pending clinical improvement. Physical exam: General: [Non toxic],[Ill appearing], [No distress]. Skin: [warm], [dry] Lungs: [chest rise symmetrical], [no accessory muscle use], [no conversational dyspnea] Cardiovascular: [ + dorsal pedis pulse bilateral], [capillary refill<2 seconds], [no lower extremity edema]
[2019-12-30 11:42] LABS: Glucose,Whole Blood 172 mg/dL (75-99)
[2019-12-30 17:00] LABS: Glucose,Whole Blood 241 mg/dL (75-99)
[2019-12-30 20:55] LABS: Glucose,Whole Blood 212 mg/dL (75-99)
[2019-12-30] MEDS: metFORMIN 500 MG TAB PO SCH (21:02)
[2019-12-30] MEDS: LURASIDONE 80 MG TAB PO SCH (21:04)
[2019-12-30] MEDS: ATORVASTATIN 80 MG TAB PO SCH (21:04)
[2019-12-31] MEDS: LEVOTHYROXINE 50 MCG TAB PO SCH (05:00)
--- NOTE | 2019-12-31 05:58 | PN ---
PROGRESS NOTE DATE OF SERVICE: 12/30/2019 REASON FOR FOLLOWUP: Acute COVID-19 pneumonia. INTERVAL HISTORY: The patient is currently afebrile, has been breathing comfortably. The patient denies having any chest pain. Occasional cough. No abdominal pain and no diarrhea. PHYSICAL EXAMINATION: Blood pressure 119/69 with a pulse of 81, temperature 98.6. He is 94% on 5 L nasal cannula. General description is a middle-aged male lying in bed in no distress. RESPIRATORY SYSTEM: Unlabored breathing, decreased intensity of breath sounds. No wheeze. HEART: S1, S2. Regular rate and rhythm. ABDOMEN: Soft, no tenderness. LABS: Hemoglobin is 13.7, white count 9.9, BUN of 22, creatinine 0.78. DIAGNOSTIC IMPRESSION AND PLAN: Patient with acute COVID-19 pneumonia. Patient is currently clinically responding, still requiring supplemental oxygen. Covered with Plaquenil, Solu-Medrol and Zinc. Monitor clinical course closely. Continue supportive care. MMODL / IJN: [id number] /
[2019-12-31 07:09] LABS: Glucose,Whole Blood 153 mg/dL (75-99)
[2019-12-31 07:12] LABS: Basophils # (A) 0.1 k/uL (0-0.2); Basophils % (A) 1 %; Eosinophils # (A) 0.1 k/uL (0-0.7); Eosinophils % (A) 1 %; HCT 42.4 % (39.0-53.0); HGB 13.8 gm/dL (13.0-17.5); Lymphocytes # (A) 2.7 k/uL (1.0-4.8); Lymphocytes % (A) 26 %; MCH 30.2 pg (25.0-35.0); MCHC 32.6 g/dL (31.0-37.0); MCV 92.8 fL (80.0-100.0); Monocytes # (A) 0.6 k/uL (0-1.0); Monocytes % (A) 6 %; Neutrophils # (A) 6.3 k/uL (1.3-7.7); Neutrophils % (A) 63 %; Platelet Count 482 k/uL (150-450); RBC 4.58 m/uL (4.30-5.90); RDW 12.9 % (11.5-15.5)
[2019-12-31 07:39] LABS: ALT 68 U/L (4-49); AST 35 U/L (17-59); African American GFR (CKD) >90 (>60 ml/min/1.73 sqM); Alkaline Phosphatase 83 U/L (38-126); Anion Gap 6 mmol/L; Blood Urea Nitrogen 23 mg/dL (9-20); Calcium 8.6 mg/dL (8.4-10.2); Carbon Dioxide 24 mmol/L (22-30); Chloride 106 mmol/L (98-107); Glucose 147 mg/dL (74-99); Non-African American GFR(CKD) >90 (>60 ml/min/1.73 sqM); Potassium 4.6 mmol/L (3.5-5.1); Sodium 136 mmol/L (137-145); Total Bilirubin 0.2 mg/dL (0.2-1.3)
[2019-12-31] MEDS: methylPREDNISolone SOD SUCCI 125 MG/2 ML VIAL IV SCH ×2 (07:40→21:35)
[2019-12-31] MEDS: HEPARIN SODIUM,PORCINE 5,000 UNIT/ML 1 ML VIAL SQ SCH ×3 (07:41→23:30)
[2019-12-31] MEDS: carBAMazepine 100 MG TAB.ER.12H PO SCH ×2 (07:41→21:35)
[2019-12-31] MEDS: FENOFIBRATE 160 MG TAB PO SCH (07:41)
[2019-12-31] MEDS: ZINC SULFATE 220 MG CAP PO SCH (07:42)
[2019-12-31] MEDS: INSULN ASP PRT/INSULIN ASPART 100 UNIT/ML 10 ML VIAL SQ SCH ×2 (07:42→17:17)
[2019-12-31] MEDS: INSULIN ASPART (NovoLOG) 100 UNIT/ML VIAL SQ SCH ×4 (07:42→21:34)
[2019-12-31] MEDS: metFORMIN 500 MG TAB PO SCH ×2 (07:42→21:35)
[2019-12-31 10:44] LABS: Glucose,Whole Blood 218 mg/dL (75-99)
--- NOTE | 2019-12-31 12:20 | P.PN ---
<Lucia Davies A - Last Filed: 12/31/19 11:46> Subjective Progress Note Date: 12/31/19 CHIEF COMPLAINT: Covid 19 HISTORY OF PRESENT ILLNESS: Patient is a 59-year-old male to past medical history of diabetes mellitus and cognitive disorder who initially presented to [facility] secondary to cough and shortness of breath. There he underwent an extensive evaluation. He was hypoxic at 87% on room air, influenza negative, Covid 19 pending, chest x-ray with diffuse infiltrates. D-dimer elevated at 1.5, AST 80, ALT 118, LDH 384, CRP elevated. He was transferred here as part of the Covid relief process. He was continued on Rocephin and doxy and for possible atypical pneumonia. He was started on Plaquenil and zinc for possible Covid. Infectious disease was consulted. By the morning after admission he was requiring increasing levels of oxygen. COVID-19 +. He continued to require high amounts of oxygen but was feeling asymptomatic. His O2 requirements stabilized. 12/29/2019: Patient examined at the bedside. He denies any shortness of breath or difficulty in breathing. He denies cough. He is on 10L nasal cannula. Oxygen saturation 97%. Patient reports generalized body aches. 12/30/2019: Patient examined at the bedside. He reports improvement in his overall respiratory status. He is on 5 L nasal cannula today. He reports generalized body aches. Nursing reports he has been up walking to the bathroom without respiratory distress. Patient has finished his course of Plaquenil. Potassium was elevated yesterday and patient received IV insulin and dextrose. Repeat potassium today remains slightly elevated at 5.4. 12/31/2019: Patient examined at the bedside. He reports improvement in body aches today. Denies SOB. Mild cough. He is on 5L NC. O2 sats 94%. Patient is afebrile. PHYSICAL EXAM: VITAL SIGNS: Reviewed GENERAL: Well-developed in no acute distress. HEENT: No sclera icterus. Extraocular movements grossly intact. Moist buccal mucosa. Head is atraumatic, normocephalic. Hears conversational speech. No nasal drainage. NECK: Supple without lymphadenopathy. CHEST: Lung sounds coarse. Equal bilateral excursions. No accessory muscle use. CARDIOVASCULAR: Regular rate with regular rhythm. Palpable pulses. ABDOMEN: Soft. Nondistended. Nontender. MUSCULOSKELETAL: No clubbing or cyanosis. NEUROLOGIC: No focal or lateralizing signs. Cranial nerves II through XII grossly intact. PSYCH: Appropriate affect. Alert and oriented to person, place and time. SKIN: Well perfused. Good skin turgor. ASSESSMENT AND PLAN: 1. Bilateral pneumonia secondary to acute Covid 19 infection, acute hypoxic respiratory failure -Supportive care -Encouraged awake proning -Patient completed course of Plaquenil -Continue to monitor labs -Limit IV fluids -Continue contact and droplet isolation precautions -Continue zinc -Continue IV steroids -Wean oxygen as tolerated to maintain O2 sats greater than 92% -Repeat CXR tomorrow morning 2. Diabetes mellitus with steroid-induced hyperglycemia -Continue sliding scale insulin, current dose of 70/30, and metformin -Continue to monitor blood sugars 3. Thrombocytosis, likely reactive -Continue to monitor CBC 4. Hyperkalemia -Resolved -Continue to monitor labs 5. Cognitive delay -Supportive care DVT prophylaxis: Heparin subcu Discussed with: Nursing, patient Anticipated discharge: Possibly within the next 48 hours pending improvement of O2 requirements Anticipated discharge place: Home Nurse practitioner note has been reviewed by physician. Signing provider agrees with the documented findings, assessment, and plan of care. Objective - Vital Signs Vital signs: Vital Signs Temp 97.5 F L 12/31/19 11:00 Pulse 76 12/31/19 11:41 Resp 18 12/31/19 11:00 BP 118/77 12/31/19 11:41 Pulse Ox 92 L 12/31/19 11:00 Intake & Output 12/30/19 12/31/19 12/31/19 18:59 06:59 18:59 Intake Total 296 Output Total 850 850 200 Balance -850 -850 96 Intake: Oral 296 Output: Urine 850 850 200 Other: Voiding Method Toilet Toilet Urinal Urinal # Voids 2 - Labs CBC & Chem 7: 12/31/19 06:20 12/31/19 06:20 Labs: Abnormal Lab Results - Last 24 Hours (Table) 12/30/19 12/30/19 12/31/19 Range/Units 16:57 20:53 06:20 Plt Count 482 H (150-450) k/uL Sodium (137-145) mmol/L BUN (9-20) mg/dL Glucose (74-99) mg/dL POC Glucose (mg/dL) 241 H 212 H (75-99) mg/dL ALT (4-49) U/L Total Protein (6.3-8.2) g/dL Albumin (3.5-5.0) g/dL 12/31/19 12/31/19 12/31/19 Range/Units 06:20 07:07 10:43 Plt Count (150-450) k/uL Sodium 136 L (137-145) mmol/L BUN 23 H (9-20) mg/dL Glucose 147 H (74-99) mg/dL POC Glucose (mg/dL) 153 H 218 H (75-99) mg/dL ALT 68 H (4-49) U/L Total Protein 6.0 L (6.3-8.2) g/dL Albumin 3.0 L (3.5-5.0) g/dL Microbiology - Last 24 Hours (Table) 12/26/19 01:53 Blood Culture - Preliminary Blood No Growth after 120 hours <Tyler Sparks - Last Filed: 12/31/19 17:12> Objective - Vital Signs Vital signs: Vital Signs Temp 98.4 F 12/31/19 15:00 Pulse 78 12/31/19 15:00 Resp 18 12/31/19 15:00 BP 101/60 12/31/19 15:00 Pulse Ox 92 L 12/31/19 15:00 Intake & Output 12/30/19 12/31/19 12/31/19 18:59 06:59 18:59 Intake Total 592 Output Total 850 850 200 Balance -850 -850 392 Intake: Oral 592 Output: Urine 850 850 200 Other: Voiding Method Toilet Toilet Urinal Urinal # Voids 2 1 - Labs CBC & Chem 7: 12/31/19 06:20 12/31/19 06:20 Labs: Abnormal Lab Results - Last 24 Hours (Table) 12/30/19 12/31/19 12/31/19 Range/Units 20:53 06:20 06:20 Plt Count 482 H (150-450) k/uL Sodium 136 L (137-145) mmol/L BUN 23 H (9-20) mg/dL Glucose 147 H (74-99) mg/dL POC Glucose (mg/dL) 212 H (75-99) mg/dL ALT 68 H (4-49) U/L Total Protein 6.0 L (6.3-8.2) g/dL Albumin 3.0 L (3.5-5.0) g/dL 12/31/19 12/31/19 12/31/19 Range/Units 07:07 10:43 16:44 Plt Count (150-450) k/uL Sodium (137-145) mmol/L BUN (9-20) mg/dL Glucose (74-99) mg/dL POC Glucose (mg/dL) 153 H 218 H 177 H (75-99) mg/dL ALT (4-49) U/L Total Protein (6.3-8.2) g/dL Albumin (3.5-5.0) g/dL Microbiology - Last 24 Hours (Table) 12/26/19 01:53 Blood Culture - Preliminary Blood No Growth after 120 hours Assessment and Plan Assessment: I saw and evaluated the patient and discussed the care with [Florinda Davies ], MELVIN on [12/31/2019 ]. I agree with the subjective, assessment and plan as documented in the note above. His oxygen requirements are currently at 5L high flow. Discussed with nursing regarding weaning patient off oxygen. He is pending improvement. Likely DC in 1-2 days. Physical exam: General: [Non toxic],[Ill appearing], [No distress]. Skin: [warm], [dry] Lungs: [chest rise symmetrical], [no accessory muscle use], [no conversational dyspnea] Cardiovascular: [ + dorsal pedis pulse bilateral], [capillary refill<2 seconds], [no lower extremity edema]
[2019-12-31 16:55] LABS: Glucose,Whole Blood 177 mg/dL (75-99)
[2019-12-31 21:08] LABS: Glucose,Whole Blood 170 mg/dL (75-99)
[2019-12-31] MEDS: ATORVASTATIN 80 MG TAB PO SCH (21:35)
[2019-12-31] MEDS: LURASIDONE 80 MG TAB PO SCH (21:35)
--- NOTE | 2019-12-31 23:54 | PN ---
PROGRESS NOTE DATE OF SERVICE: 12/31/2019 REASON FOR FOLLOWUP: Acute COVID-19 pneumonia. INTERVAL HISTORY: The patient is currently afebrile. The patient is breathing comfortably. The patient denies having any chest pain. Occasional cough. No nausea, no vomiting. No abdominal pain or diarrhea. PHYSICAL EXAMINATION: Blood pressure 147/68, pulse of 78, temperature 98.4. He is 96% on 5 L nasal cannula. General description is a middle-aged male lying in bed in no distress. RESPIRATORY SYSTEM: Unlabored breathing with decreased intensity of breath sounds. HEART: S1, S2. Regular rate and rhythm. ABDOMEN: Soft. No tenderness. LABS: Hemoglobin is 13.8, white count 10 with a BUN of 23, creatinine 0.80. DIAGNOSTIC IMPRESSION AND PLAN: Patient with acute COVID-19 pneumonia. Patient seems to have shown clinical improvement, requiring less oxygenation. Chest x-ray to be repeated tomorrow for followup. Continue with current treatment and monitor his clinical course closely. MMODL / IJN: [id number] / [place]
[2020-01-01] MEDS: LEVOTHYROXINE 50 MCG TAB PO SCH (05:32)
[2020-01-01 06:50] LABS: Glucose,Whole Blood 164 mg/dL (75-99)
[2020-01-01] MEDS: FENOFIBRATE 160 MG TAB PO SCH (07:00)
[2020-01-01] MEDS: metFORMIN 500 MG TAB PO SCH (07:00)
[2020-01-01] MEDS: HEPARIN SODIUM,PORCINE 5,000 UNIT/ML 1 ML VIAL SQ SCH (07:01)
[2020-01-01] MEDS: methylPREDNISolone SOD SUCCI 125 MG/2 ML VIAL IV SCH (07:01)
[2020-01-01] MEDS: carBAMazepine 100 MG TAB.ER.12H PO SCH (07:01)
[2020-01-01] MEDS: ZINC SULFATE 220 MG CAP PO SCH (07:02)
[2020-01-01] MEDS: INSULN ASP PRT/INSULIN ASPART 100 UNIT/ML 10 ML VIAL SQ SCH (07:02)
[2020-01-01] MEDS: INSULIN ASPART (NovoLOG) 100 UNIT/ML VIAL SQ SCH ×2 (07:03→11:43)
[2020-01-01 07:39] VITALS: RESP 18
[2020-01-01 08:36] LABS: Basophils % (A) 0 %; Eosinophils % (A) 0 %; HCT 44.4 % (39.0-53.0); HGB 14.6 gm/dL (13.0-17.5); Lymphocytes % (A) 15 %; MCH 30.2 pg (25.0-35.0); MCHC 32.8 g/dL (31.0-37.0); MCV 92.3 fL (80.0-100.0); Mean Platelet Volume 7.1; Monocytes # (A) 0.5 k/uL (0-1.0); Monocytes % (A) 4 %; Neutrophils # (A) 10.5 k/uL (1.3-7.7); Neutrophils % (A) 79 %; Platelet Count 520 k/uL (150-450); RBC 4.81 m/uL (4.30-5.90); RDW 12.7 % (11.5-15.5); WBC 13.3 k/uL (3.8-10.6)
--- NOTE | 2020-01-01 08:39 | XR ---
EXAMINATION TYPE: XR chest 1V portable DATE OF EXAM: 01/01/2020 COMPARISON: 12/28/2019 INDICATION: Covid 19 TECHNIQUE: Single frontal view of the chest is obtained. FINDINGS: The heart size is normal. The pulmonary vasculature is normal. There are scattered peripheral infiltrates present bilaterally. This may be slightly improved over th e interval. IMPRESSION: 1. Slight improvement of bilateral patchy peripheral infiltrates.
[2020-01-01 08:41] LABS: ALT 64 U/L (4-49); AST 26 U/L (17-59); African American GFR (CKD) >90 (>60 ml/min/1.73 sqM); Albumin 3.4 g/dL (3.5-5.0); Alkaline Phosphatase 89 U/L (38-126); Anion Gap 8 mmol/L; Blood Urea Nitrogen 25 mg/dL (9-20); Calcium 9.1 mg/dL (8.4-10.2); Carbon Dioxide 27 mmol/L (22-30); Chloride 103 mmol/L (98-107); Creatine Kinase 31 U/L (55-170); Glucose 163 mg/dL (74-99); LDH 552 U/L (313-618); Non-African American GFR(CKD) 86 (>60 ml/min/1.73 sqM); Potassium 4.9 mmol/L (3.5-5.1); Sodium 138 mmol/L (137-145); Total Bilirubin 0.4 mg/dL (0.2-1.3); Total Protein 6.6 g/dL (6.3-8.2)
[2020-01-01 09:10] VITALS: BMI 35.4
[2020-01-01 09:11] LABS: C Reactive Protein <5.0 mg/L (<10.0)
[2020-01-01 11:12] LABS: Glucose,Whole Blood 160 mg/dL (75-99)
--- NOTE | 2020-01-01 12:43 | P.DS ---
<Lucia Davies Catherine - Last Filed: 01/01/20 12:51> Providers Expected date of discharge: 01/01/20 Hospital Course: Patient is a 59-year-old male to past medical history of diabetes mellitus and cognitive disorder who initially presented to [facility] secondary to cough and shortness of breath. There he underwent an extensive evaluation. He was hypoxic at 87% on room air, influenza negative, Covid 19 pending, chest x-ray with diffuse infiltrates. D-dimer elevated at 1.5, AST 80, ALT 118, LDH 384, CRP elevated. He was transferred here as part of the Covid relief process. He was continued on Rocephin and doxy and for possible atypical pneumonia. He was started on Plaquenil and zinc for possible Covid. Infectious disease was consulted. By the morning after admission he was requiring increasing levels of oxygen. COVID-19 +. He continued to require high amounts of oxygen but was feeling asymptomatic. His O2 requirements stabilized. 12/29/2019: Patient examined at the bedside. He denies any shortness of breath or difficulty in breathing. He denies cough. He is on 10L nasal cannula. Oxygen saturation 97%. Patient reports generalized body aches. 12/30/2019: Patient examined at the bedside. He reports improvement in his overall respiratory status. He is on 5 L nasal cannula today. He reports generalized body aches. Nursing reports he has been up walking to the bathroom without respiratory distress. Patient has finished his course of Plaquenil. Potassium was elevated yesterday and patient received IV insulin and dextrose. Repeat potassium today remains slightly elevated at 5.4. 12/31/2019: Patient examined at the bedside. He reports improvement in body aches today. Denies SOB. Mild cough. He is on 5L NC. O2 sats 94%. Patient is afebrile. 01/01/2020: Patient examined at the bedside. Patient denies shortness of breath. He has been weaned down to room air. He is maintaining oxygen saturations greater than 92% while ambulating. Remaining vital signs have been stable. He is afebrile. Chest x-ray this morning reveals slight improvement of bilateral patchy peripheral infiltrates. Patient has completed his course of Plaquenil. He is stable for discharge home today. He is prescribed a short prednisone taper at discharge (40 mg for 4 days, 30 mg for 3 days, 20 mg for 2 days, 10 mg for one day). Please see EMR for further hospital course details. Discharge Diagnosis: 1. Bilateral pneumonia secondary to acute Covid 19 infection, acute hypoxic respiratory failure 2. Diabetes mellitus with steroid-induced hyperglycemia 3. Thrombocytosis, likely reactive 4. Hyperkalemia 5. Cognitive delay Nurse practitioner note has been reviewed by physician. Signing provider agrees with the documented findings, assessment, and plan of care. Patient Condition at Discharge: Stable Plan - Discharge Summary Discharge Rx Participant: No New Discharge Prescriptions: New predniSONE See Taper PO DIRECTED #30 tab Continue Insulin NPH Hum/Reg Insulin Hm [NovoLIN 70-30 100 UNIT/ML VIAL] 56 units SQ AC-BRKFST metFORMIN HCL 1,000 mg PO BID Fenofibrate 160 mg PO DAILY Levothyroxine Sodium [Synthroid] 50 mcg PO DAILY Atorvastatin [Lipitor] 80 mg PO HS carBAMazepine [TEGretol XR] 200 mg PO HS Venlafaxine HCl [Effexor] 75 mg PO DAILY Lurasidone [Latuda] 80 mg PO HS carBAMazepine [TEGretol XR] 100 mg PO DAILY Insuln Asp Prt/Insulin Aspart [NovoLOG MIX 70-30 VIAL] 35 units SQ AC-SUPPER No Action Levothyroxine Sodium [Synthroid] 50 mcg PO DAILY Discharge Medication List Atorvastatin [Lipitor] 80 mg PO HS 12/26/19 [History] Fenofibrate 160 mg PO DAILY 12/26/19 [History] Insulin NPH Hum/Reg Insulin Hm [NovoLIN 70-30 100 UNIT/ML VIAL] 56 units SQ AC- BRKFST 12/26/19 [History] Insuln Asp Prt/Insulin Aspart [NovoLOG MIX 70-30 VIAL] 35 units SQ AC-SUPPER 12/26/19 [History] Levothyroxine Sodium [Synthroid] 50 mcg PO DAILY 12/26/19 [History] Levothyroxine Sodium [Synthroid] 50 mcg PO DAILY 12/26/19 [History] Lurasidone [Latuda] 80 mg PO HS 12/26/19 [History] Venlafaxine HCl [Effexor] 75 mg PO DAILY 12/26/19 [History] carBAMazepine [TEGretol XR] 100 mg PO DAILY 12/26/19 [History] carBAMazepine [TEGretol XR] 200 mg PO HS 12/26/19 [History] metFORMIN HCL 1,000 mg PO BID 12/26/19 [History] predniSONE See Taper PO DIRECTED #30 tab 01/01/20 [Rx] Follow up Appointment(s)/Referral(s): [facility], [NON-STAFF] - As Needed PCP, patient choice [Other] - 1 Week Ambulatory/Diagnostic Orders: XR chest 2V [RAD.AMB] Location: None Selected Discharge Disposition: HOME WITH HOME HEALTH SERVICES <Tyler Sparks - Last Filed: 01/01/20 17:08> Providers Date of admission: 12/25/19 22:10 Attending physician: Krystal Gaytan MD Consults: 12/26/19 01:01 Consult Physician Routine Consulting Provider: Ajay Jewell Consult Reason/Comments: atypical pneumonia , possible covid Do you want consulting provider notified?: Yes, Notify in am Primary care physician: Physician Nonstaff Hospital Course: I have seen and examined the patient on their discharge day with MELVIN Corona. I have reviewed, edited, and agree with the above discharge summary. More than 30 minutes was personally spent on discharge planning on the day of discharge in coordination of care,counseling the patient, and preparation of discharge and transfer paperwork. He was successfully weaned off oxygen today. He has no complaints. He is hemodynamically stable. Patient is comfortable going home. Physical exam: General: Non toxic, No distress, appears at stated age Skin: warm, dry Lungs: chest rise symmetrical, no accessory muscle use, no conversational dyspnea Cardiovascular: + dorsal pedis pulse bilateral, capillary refill <2 seconds, no lower extremity edema
[2020-01-01 14:56] VITALS: BP 129/75; PULSE 77; TEMP 98.1
[2020-01-01 15:51] LABS: Ferritin 377.3 ng/mL (22.0-322.0)
--- NOTE | 2020-01-01 21:16 | P.PN ---
Progress Note - Text Progress Note Date: 01/01/20 REASON FOR FOLLOWUP: Acute COVID-19 pneumonia. INTERVAL HISTORY: The patient remains to be afebrile. The patient is breathing comfortably. The patient denies having any chest pain. Occasional cough. No nausea, no vomiting. No abdominal pain or diarrhea. PHYSICAL EXAMINATION: Blood pressure 140/68, pulse of 70, temperature 98.4. He is 92% on RA. General description is a middle-aged male lying in bed in no distress. RESPIRATORY SYSTEM: Unlabored breathing with decreased intensity of breath sounds. HEART: S1, S2. Regular rate and rhythm. ABDOMEN: Soft. No tenderness. LABS: chest xray this am -- improvement in infiltrates DIAGNOSTIC IMPRESSION AND PLAN: Patient with acute COVID-19 pneumonia. Patient seems to have shown clinical improvement, on room air. Chest x-ray did show improvment. to finish 5 day course of plaquenil . MMODL / IJN: [id number] /
== END 2020-01-01 15:36 | disposition home health service (06) | DRG 177 ==
LOC: 4SSUR 22:10 → EDBD 22:10
PROVIDERS: ADMIT Internal Medicine; ATTEND Internal Medicine
DX: U07.1 COVID-19 (principal); J12.89 Other viral pneumonia; J96.01 Acute respiratory failure with hypoxia; D72.810 Lymphocytopenia; D47.3 Essential (hemorrhagic) thrombocythemia; E11.65 Type 2 diabetes mellitus with hyperglycemia; E87.5 Hyperkalemia; T38.0X5A Adverse effect of glucocorticoids and synthetic analogues, initial encounter; G31.84 Mild cognitive impairment of uncertain or unknown etiology; Z79.4 Long term (current) use of insulin; Z79.890 Hormone replacement therapy; Z79.899 Other long term (current) drug therapy
CPT/HCPCS: 71045; 80053; 82550; 82728; 83036; 83615; 83735; 84132; 84145; 85025; 85379; 86140; 87040; 87635; 93005; 94760